=== PATIENT | female | born 1940 | race Caucasian/White ===

== ENCOUNTER 2016-11-02 12:25 | Observation (INO) | payer MEDICARE, BC ==
[~2016-11-02] VITALS: Ht 152.4 cm; Wt 67.9 kg
--- NOTE | ~2016-11-02 | CST ---
Cardiac Perfusion Imaging Demographics Patient Name HUONG Guzman Gender Female Patient Number [id number] Race Visit Number [id number] Ethnicity [employer] ID Room Number 405 Accession Number [id number] Height 60 inches Date of 1940 Weight 149 pounds Age 76 year(s) BSA 1.65 m Referring Physician Pedro Ortiz MD BMI 29.1 kg/m Interpreting Physician [facility] Butch Candelario Date of study 11/03/2016 Yaz Hathaway MD Supervising MD/MLP Yaz Hathaway MD NM Technologist Ar Friedman Ordering Physician Pedro Ortiz MD Stress Manjit Britney process control technician Stress ECG Reading [facility] Nurse Guille Freed Physician Yaz Augustin The procedure was explained in detail to the patient. Risks, complications and alternative treatments were reviewed. Written consent was obtained. Medications Reviewed with Patient prior to Procedure. Procedure Procedure Type: Nuclear Stress Test:Cardiac Study SF Procedure Start time: 11/03/2016 08:30 Indications: Chest pain, Shortness of breath, Hyperlipidemia and Hypertension. Risk Factors The patient risk factors include:former tobacco use, hypertension and dyslipidemia. Conclusions Summary Perfusion Images: The overall quality of the study is good. Left ventricular cavity is noted to be normal on the stress and rest studies. There is no evidence of abnormal lung activity. The right ventricle is not visualized and cannot be assessed. Stress SPECT images demonstrate homogenous tracer distribution throughout the myocardium. Rest SPECT images demonstrate homogenous tracer distribution throughout the myocardium. Gated SPECT imaging reveals normal myocardial thickening and wall motion. The left ventricular ejection fraction was calculated to be 78%. Impression ECG portion of stress test is clinically negative for ischemia by diagnostic criteria. Myocardial perfusion imaging is normal. Overall left ventricular systolic function was normal without regional wall motion abnormalities. Compared to the prior study from 2011, the current study reveals no change. Stress Protocols Resting ECG Normal sinus rhythm. Resting HR:50 bpm Resting BP:138/80 mmHg Stress Protocol:Pharmacologic Predicted HR: 145 bpm Test duration: 06:00 min Reason for termination:Infusion complete ECG Findings No ECG changes suggestive of ischemia. Arrhythmias No rhythm abnormality. Symptoms Headache. Chest pressure Complications Procedure complication: None. Stress Interpretation Appropriate hemodynamic response to Lexiscan. No significant ST-T wave changes with Lexiscan. ECG portion is negative for ischemia by diagnostic criteria. Imaging Results Summed scores - Summed stress score: 0 - Summed rest score: 0 - Summed difference score: 0 Stress ejection Ejection fraction:77 % EDV :62 ml ESV :14 ml Stroke volume :48 ml LV mass :86 gr Imaging Protocols Rest Stress Isotope:Tc99m Myoview IV Isotope: Tc99m Myoview IV Isotope dose:10.2 mCi Isotope dose:30.9 mCi Date:11/03/2016 06:30 Date:11/03/2016 08:30 Technique: SPECT Technique: Gated Supine SPECT Supine IV remains in place after procedure. Scan Time:45-60 minutes post Scan Time:15-30 minutes post injection injection Procedure Medications - Regadenoson (Lexiscan) 0.4 mg IV over 10-15 sec. I.V. 0.4 mg. Medications administered per verbal order and read back to physician prior to administration. Medical History Admission Data Admission date: 11/02/2016 Admission Time: 15:00 Hospital Status: Inpatient. Signatures
[2016-11-04] MEDS ORDERED: COZAAR DPS50 MG PO (18:12)
[2016-11-04] MEDS ORDERED: PLAVIX75 MG PO (18:12)
[2016-11-04] MEDS ORDERED: VITAMIN B-121000 MCG PO (18:12)
[2016-11-04] MEDS ORDERED: DISALCID500 MG PO (18:12)
[2016-11-04] MEDS ORDERED: LOTEMAX5 ML OU (18:13)
[2016-11-04] MEDS ORDERED: ZOLOFT DPS100 MG PO (18:13)
[2016-11-04] MEDS ORDERED: VITAMIN D-32000 UNI1 PO (18:13)
[2016-11-04] MEDS ORDERED: ASA325 MG PO (18:14)
[2016-11-04] MEDS ORDERED: CITRACAL + D M1 EACH PO (18:14)
[2016-11-04] MEDS ORDERED: ATORVASTATIN CA80 MG PO (18:14)
[2016-11-04] MEDS ORDERED: SLO NIACIN DPS500 MG PO (18:15)
[2016-11-04] MEDS ORDERED: SYSTANE BALANCE10 ML OU (18:15)
[2016-11-04] MEDS ORDERED: RESTORIL DPS15 MG PO (18:15)
[2016-11-04] MEDS ORDERED: TYLENOL EXTRA500 M1 PO (18:16)
[2016-11-04] MEDS ORDERED: PROTONIX40 MG PO (18:16)
--- NOTE | 2016-11-06 14:14 | HP ---
ADMIT: 11/02/2016 RM/LOC: 405 [facility] MR#: [id number] [address] [facility] [address] [place] [id number] ZACHARY BORJA Megan [address] [place] [address] History and Physical SEX: F AGE: 76 : 1940 DATE OF SERVICE: CHIEF COMPLAINT: Chest pain. HISTORY OF PRESENT ILLNESS: This is a 76-year-old female who has a history of right carotid disease, who presented with chest pain. This started on Wednesday while she was working at the [employer], got a little worse with activity. She does have some shortness of breath associated as well. She describes a deep pressure in the middle of her chest. Denies any radiation. It did not really get any better throughout Wednesday even though she just lied around, and then today, she presented to the emergency room. Initial workup was normal. EKG and enzymes are all normal. She continued to have a little chest pain, did go away with some of the nitroglycerin paste. Actually, at the current time, it is starting to get a little worse. She describes it a deep central pressure. Denies any new activities that may contribute. She does have some tenderness to her chest but denies that this is the same pressure feeling that she had had. PAST MEDICAL HISTORY: Includes peripheral vascular disease/right carotid disease, hypothyroidism, hypertension, hyperlipidemia, arthritis. Other past medical history includes a history of colon polyps. PAST SURGICAL HISTORY: Surgeries include thyroid surgery, bilateral total knees, melanoma removal, back surgery. SOCIAL HISTORY: She smoked in high school, none currently. She is . FAMILY HISTORY: Reviewed but noncontributory. REVIEW OF SYSTEMS: Other complete review of systems obtained and negative except as above. PHYSICAL EXAMINATION: VITAL SIGNS: Blood pressure 135/68, oxygen saturation 97%, pulse 54, respirations 17, temperature 98.7. GENERAL: This is a well-appearing, 76-year-old female, very pleasant, no apparent distress. HEENT: Pupils equal, round, and reactive to light and accommodation. Her extraocular muscles are intact. Her throat is clear. NECK: Supple. Trachea midline. She has a right carotid endarterectomy scar. HEAD: Normocephalic and atraumatic. Thyroid not palpable. HEART: Regular rate and rhythm. She has soft heart sounds. She has a 2/6 systolic murmur heard best at the right sternal border. LUNGS: Clear to auscultation bilaterally. ABDOMEN: Soft, nontender. Normal bowel sounds. EXTREMITIES: Lower extremities have no edema. Cranial nerves are intact. She can move all her extremities equally bilaterally. LABORATORY AND X-RAY DATA: EKG shows normal sinus rhythm, low voltage tracing. X-ray normal, and enzymes normal. ADMIT: 11/02/2016 RM/LOC: 405 [facility] MR#: [id number] [address] [place] [id number] [place] [address] History and Physical SEX: F AGE: 76 : 1940 ASSESSMENT: 1. Chest pain. 2. Shortness of breath. 3. History of peripheral vascular disease with carotid disease. 4. Hypothyroidism. 5. Hypertension. 6. Arthritis. PLAN: I think her story is significant and may indicate heart disease. We will make sure her thyroid is intact. Continue the aspirin, trend her enzymes carefully. Check an echo and possibly do a Lexiscan stress test in the morning. Isidro Vasquez MD/ calin JOB #: [id number] CC: Pati Alberto, Attending Physician Pati Alberto, Family Physician
--- NOTE | 2016-11-20 15:00 | ER ---
ADMIT: 11/02/2016 RM/LOC: 405 [facility] MR#: [id number] [address] [facility] [id number] ZACHARY BORJA [address] [place] [address] Emergency Room Report SEX: F AGE: 76 : 1940 DATE: 11/02/2016 ADDENDUM: A 76-year-old white female coming with chest pain. She has had it on and off since Wednesday. Worse with exertion. Goes away when she lays down. CBC shows a white count of 3.9. Chemistries normal. Troponin is normal. EKG, chest x-ray nothing acute. I spoke with Dr. Alberto after we put an inch of paste on her. She will be admitted as rule-out. CONDITION ON DISCHARGE: Good. Sher Boykin MD/ calin JOB #: [id number] CC: Pati Alberto MD, Attending Physician Pati Alberto MD, Family Physician
== END 2016-11-03 15:00 | disposition home or self-care (01) ==
LOC: ER 12:25 → 4PCU 15:00
PROVIDERS: ADMIT Internal Medicine
DX: R07.9 Chest pain, unspecified (principal); I10 Essential (primary) hypertension; E78.5 Hyperlipidemia, unspecified; E03.9 Hypothyroidism, unspecified; R06.02 Shortness of breath; M19.90 Unspecified osteoarthritis, unspecified site; Z86.010 Personal history of colon polyps; Z87.891 Personal history of nicotine dependence; Z79.899 Other long term (current) drug therapy; Z79.82 Long term (current) use of aspirin